=== PATIENT | male | born 1995 | race Hispanic/Latino ===

== ENCOUNTER → 2024-11-03 | Outpatient (CLI) | payer OTHER ==
[~2024-11-03] MED LIST: IOHEXOL-350 75 ML VIAL IV ONE
--- NOTE | 2024-11-03 09:37 | HMCIMG ---
CT ABDOMEN WITH CONTRAST Clinical Information: Abnormal findings on diagnostic imaging of liver and biliary tract Technique: Routine helical scanning at 5mm collimation through the abdomen was performed after oral contrast administration. The examination was done before and after IV contrast administration as well. Intermediate and 7 minute delayed post IV contrast administration images were performed, for adequate contrast distention of the urinary collecting systems, ureters and the urinary bladder. Findings: No evidence of nephro or ureterolithiasis is found. No hydronephrosis or ureteral dilatation is seen. The lung bases are clear. The stomach is unremarkable. There is no evidence of gastric dilatation. No blastic thickening is noted to suggest inflammation or tumor. There is no perforation. There is no gastric outlet obstruction. There is no ulceration. The spleen is unremarkable. It is not enlarged. The pancreas shows normal anatomy. It is not fatty replaced. It shows no lesions. The pancreatic duct is not dilated. The gallbladder is unremarkable. It shows no cholelithiasis. The gallbladder wall is normal in thickness. There is no pericholecystic fluid. The is no acute or chronic inflammation noted. The adrenal glands are unremarkable. There is no enlargement. No lesions are noted. The liver is unremarkable. It shows no focal masses. The visualized segments of large and small bowel appear unremarkable. The bony and vascular structures are unremarkable for the patient's age. IMPRESSION: NEGATIVE CT SCAN OF THE ABDOMEN. NO RENAL STONES. NO ACUTE PATHOLOGY OR INFLAMMATION SEEN. This study was performed using dose reduction techniques to include automated exposure control and/or adjustment of the mA and/or kV according to patient size.
== END | disposition home or self-care (01) ==
LOC: RAH 07:41
PROVIDERS: ATTEND Internal Medicine Gastroenterology
DX: R93.2 Abnormal findings on diagnostic imaging of liver and biliary tract (principal); R07.9 Chest pain, unspecified; R06.00 Dyspnea, unspecified
CPT/HCPCS: 74170; Q9967